=== PATIENT | female | born 1955 | race Caucasian/White ===

== ENCOUNTER 2024-01-16 14:46 | Outpatient (AMB) | payer MEDICARE, SELFPAY ==
--- NOTE | 2024-01-16 14:47 | MHC.PC.OV ---
Vital Signs 01/16/24 15:01 Height 5 ft 5 in Weight 313 lb 8 oz BMI 52.2 BP 110/84 Blood Pressure Location Rt brachial Position Sitting Respiration 16 Pulse 74 Pulse Source Pulse Oximeter Temp 98.7 F Temp Source Oral Pulse Oximetry (%) 94 Oxygen Delivery Method Room Air Intake Visit Reasons: est care Intake Note: New patient visit Resolution Specialist Required: No Allergies codeine Allergy (Unknown, Verified 01/16/24 14:56) unable to breath bee stings Allergy (Unknown, Uncoded 01/16/24 14:56) passed out Tobacco use date assessed: 01/16/24 Fall risk assessment: No Falls in past year Last assessed Fall Risk: 01/16/24 Dental Screening Dental Screen Date: 01/16/24 Did you have a dental visit in the last 12 months?: Yes Did you have a dental problem in the last 6 months where you did not have access to dental care?: No Was dental information given to patient?: Yes HPI HPI Comments History of Present Illness Details History of 67 year old female with a past medical history of chronic pain-OA, failed back, GERD, hypertension, recurrent sinus infection, history of chest pain presenting for follow upshortness of breath, f/up GI symptoms CV: Over the past year has had increasing exertional dyspnea. has more recently had exertional chest tightness. She had PFTs, CT last year. In 2020 had more subtle symptoms. stress testing at that time was unremarkable. She has been having intermittent lower extremity swelling and notes blood pressure is sometimes higher than previously OA: [place]arth[place]. Status post right knee replacement. Multiple prior orthopedic surgeries in the past PFSH Medical History Right wrist fracture Left wrist fracture Radicular pain of lumbosacral region Peripheral neuropathy Myofascial pain Muscle spasm Lumbar radicular pain Lumbar spinal stenosis Lumbar facet joint pain Right knee pain Heart murmur Left foot pain Failed back syndrome Diverticulitis Alcohol drinking problem Surgical History (Updated 01/16/24 @ 15:22 by Viri Sharma CMA) History of spinal fusion H/O: hysterectomy H/O hysterectomy for benign disease Status post right knee surgery Status post lumbar surgery Status post lumbar spinal fusion Family History (Updated 01/16/24 @ 15:24 by Viri Sharma CMA) Mother Ovarian cancer Other Clotting disorder Social History (Updated 01/16/24 @ 15:25 by Viri Sharma CMA) Housing: Condominium Patient Tobacco Use Status: Former Tobacco user Cigarette Packs Per Day: 1 Years Smoked: 15, quit 30 years ago e-Cigarette/Vaping Use: Never Used Second Hand Smoke Exposure: Yes (past ) service: Yes Current occupational status: retired Cognitive needs: No Hearing needs: No Vision needs: Yes (reading glasses) Questionnaire PHQ-9 Over the last 2 weeks, how often have you been bothered by any of the following problems? 1. Little interest or pleasure in doing things: more than half the days 2. Feeling down, depressed, or hopeless: not at all 3. Trouble falling or staying asleep, or sleeping too much: nearly every day 4. Feeling tired or having little energy: more than half the days 5. Poor appetite or overeating: nearly every day 6. Feeling bad about yourself - or that you are a failure or have let yourself or your family down: not at all 7. Trouble concentrating on things, such as reading the newspaper or watching television: not at all 8. Moving or speaking so slowly that other people could have noticed. Or the opposite - being so fidgety or restless that you have been moving around a lot more than usual: not at all 9. Thoughts that you would be better off or of hurting yourself in some way: not at all Total score: 10 Depression Screening Interpretation: Positive Depression Screening Done: Yes 24420 - PHQ-9 Billing: Yes Source: Developed by Drs. Mohit Lindsay, Torri Zavala, Enrico Dunbar and colleagues, with an educational pranav from [employer]. Thrive Questionnaire Date Thrive assessed: 01/16/24 I am a: Patient What is your living situation today?: I have a steady place to live Within the past 12 months, did the food you bought not last and you didn't have the money to get more?: Never true Within the past 12 months, did you worry whether your food would run out before you got money to buy more?: Never true Do you have trouble paying for medicines?: No Do you have trouble getting transportation to medical appointments?: No Do you have trouble paying your heating and electricity bill?: No Do you have trouble taking care of your child, family member or friend?: No Do you have trouble with day-to-day activities such as bathing, preparing meals, shopping, managing finances, etc.?: No Are you currently unemployed and looking for a job?: No Are you interested in more education?: No Please select the resources that you would like help with: None Currently or been in a relationship where the following occur: no concerns reported THRIVE Score: 0 AUDIT C Alcohol Use Questionnaire (AUDIT-C) 1. How often do you have a drink containing alcohol?: Never 3. How often do you have six or more drinks on one occasion?: Never Total Score: 0 JERMAINE-7 AMB Questionnaire JERMAINE-7 Date JERMAINE - 7 assessed: 01/16/24 Feeling nervous, anxious, or on edge: 1 = Several days Not being able to stop or control worryin = Several days Worrying too much about different things: 0 = Not at all Trouble relaxin = Several days Being so restless that it is hard to sit still: 1 = Several days Becoming easily annoyed or irritable: 2 = More than half the days Feeling afraid as if something awful might happen: 0 = Not at all Total JERMAINE-7 score (0-4 normal; 5-9 mild; 10-14 moderate; 15-21 severe): 6 Source: Developed by Drs. Mohit Lindsay, Torri Zavala, Enrico Dunbar and colleagues, with an educational pranav from [employer]. JERMAINE-7 Assessment Billing JERMAINE-7 Assessment Tool: JERMAINE-7 Assessment 46793 Review of Systems Const Details: ROS CONSTITUTIONAL: Denies weight loss, fever and chills. HEENT: Denies changes in vision and hearing. RESPIRATORY: see HPI CV: see HPI GI: Denies abdominal pain, nausea, vomiting and diarrhea. : Denies dysuria and urinary frequency. MSK: Denies new myalgia and joint pain. SKIN: Denies rash and pruritus. NEUROLOGICAL: Denies headache PSYCHIATRIC: Denies recent changes in mood. Physical exam (Primary Care) Vital Signs: Last Vital Signs Temp 98.7 F 01/16/24 15:01 Pulse 74 01/16/24 15:01 Resp 16 01/16/24 15:01 BP 110/84 01/16/24 15:01 Pulse Ox 94 01/16/24 15:01 Oxygen Delivery Method Room Air 01/16/24 15:01 PHYSICAL EXAM: GENERAL: Alert and oriented x 3. NAD EYES: EOMI. Anicteric. HENT: Moist mucous membranes. No scleral icterus. No cervical lymphadenopathy. LUNGS: Clear to auscultation bilaterally. CARDIOVASCULAR: Regular rate and rhythm. No murmur. No JVD. ABDOMEN: Soft, non-tender +bs EXTREMITIES: No edema. Non-tender. SKIN: No rashes or lesions. Warm. NEUROLOGIC: No focal neurological deficits. CN II-XII grossly intact PSYCHIATRIC: Cooperative. Appropriate mood and affect BMI result Body Mass Index 52.2 Tobacco/Smoking Status: Tobacco use Status Tobacco use date assessed 01/16/24 01/16/24 15:07 Patient Tobacco Use Status Former Tobacco user 01/16/24 15:25 e-Cigarette/Vaping Use Never Used 01/16/24 15:25 PHQ-9: PHQ-9 Score PHQ-9: Total score 10 01/16/24 15:15 Depression Screening Interpretation: Positive Thrive Assessment: Date of Thrive Assessment Date Thrive assessed 01/16/24 01/16/24 15:15 Currently or been in a relationship where the following occur: no concerns reported Assessment and Plan Assessment & Plan (1) Exertional dyspnea: Comment: stress testing ordered Code(s): R06.09 - Other forms of dyspnea (2) Leg swelling: Comment: Start lasix/ 09/13 amlodipine Code(s): M79.89 - Other specified soft tissue disorders Orders: Orders CA echo transthoracic complete 01/16/24 R06.09 - Other forms of dyspnea CT angio chest PE protocol 01/16/24 M79.89 - Other specified soft tissue disorders, R06.02 - Shortness of breath, R06.09 - Other forms of dyspnea NM cardiolite stress test 01/16/24 R06.09 - Other forms of dyspnea Medications: New furosemide (Lasix) Take one tab oral once daily. Take an additional 1 tab as needed for leg swelling orally daily; 120 tabs 3RF Coding Level of Care Code Tele Est Pt Level 5 (06543) Complex EM visit Add On G2211 Diagnoses Exertional dyspnea R06.09 Leg swelling M79.89 Additional Codes JERMAINE-7 Assessment Billing - JERMAINE-7 Assessment Tool: JERMAINE-7 Assessment 22625 ([id number])
[2024-01-16 15:01] VITALS: BP 110/84; PULSE 74; RESP 16; TEMP 37.1; O2SAT 94; BMI 52.2
== END 2024-01-16 15:51 | disposition home or self-care (01) ==
PROVIDERS: Visit Provider Internal Medicine
DX: R06.09 Other forms of dyspnea (principal); M79.89 Other specified soft tissue disorders
CPT/HCPCS: 99214; G2211

== ENCOUNTER 2024-05-04 10:05 | Outpatient (AMB) | payer MEDICARE, SELFPAY ==
--- NOTE | 2024-05-04 10:10 | MHC.PC.OV ---
Vital Signs 05/04/24 10:11 Height 5 ft 5 in Weight 313 lb BMI 52.1 BP 132/64 Blood Pressure Location Rt brachial Position Sitting Respiration 12 Pulse 86 Pulse Source Pulse Oximeter Pulse Oximetry (%) 99 Oxygen Delivery Method Room Air Intake Visit Reasons: f/up shortness of breath Intake Note: Patient is following up for shortness of breath. Physician Relations Specialist Required: No Accompanied by: Self / Same As Patient Allergies codeine Allergy (Unknown, Verified 05/04/24 10:16) unable to breath bee stings Allergy (Unknown, Uncoded 05/04/24 10:16) passed out Tobacco use date assessed: 01/16/24 Fall risk assessment: No Falls in past year Last assessed Fall Risk: 05/04/24 Dental Screening Dental Screen Date: 01/16/24 HPI HPI Comments History of Present Illness Details History of 67 year old female with a past medical history of chronic pain-OA, failed back, GERD, hypertension, recurrent sinus infection, history of chest pain presenting for follow up shortness of breath, f/up GI symptoms CV: Over the past year has had increasing exertional dyspnea. has more recently had exertional chest tightness. She had PFTs, CT last year. In 2020 had more subtle symptoms. stress testing at that time was unremarkable -Echocardiogram unremarkable -Nuclear stress test with ?reversible defect -CT angiogram scheduled for June -Currently on [facility] monitor for another week -CTA insignificant-nodule -seeing pulmonary May 09 OA: [place]. Status post right knee replacement. Multiple prior orthopedic surgeries in the past ROS CONSTITUTIONAL: Denies weight loss, fever and chills. HEENT: Denies changes in vision and hearing. RESPIRATORY: Denies SOB and cough. CV: Denies palpitations and CP GI: Denies abdominal pain, nausea, vomiting and diarrhea. : Denies dysuria and urinary frequency. MSK: Denies new myalgia and joint pain. SKIN: Denies rash and pruritus. NEUROLOGICAL: Denies headache PSYCHIATRIC: Denies recent changes in mood. PHYSICAL EXAM: GENERAL: Alert and oriented x 3. NAD EYES: EOMI. Anicteric. HENT: Moist mucous membranes. No scleral icterus. No cervical lymphadenopathy. LUNGS: Clear to auscultation bilaterally. CARDIOVASCULAR: Regular rate and rhythm. No murmur. No JVD. ABDOMEN: Soft, non-tender +bs EXTREMITIES: No edema. Non-tender. SKIN: No rashes or lesions. Warm. NEUROLOGIC: No focal neurological deficits. CN II-XII grossly intact PSYCHIATRIC: Cooperative. Appropriate mood and affect [facility] Medical History Right wrist fracture Left wrist fracture Radicular pain of lumbosacral region Peripheral neuropathy Myofascial pain Muscle spasm Lumbar radicular pain Lumbar spinal stenosis Lumbar facet joint pain Right knee pain Heart murmur Left foot pain Failed back syndrome Diverticulitis Alcohol drinking problem Surgical History (Updated 01/16/24 @ 15:22 by Viri Sharma CMA) History of spinal fusion H/O: hysterectomy H/O hysterectomy for benign disease Status post right knee surgery Status post lumbar surgery Status post lumbar spinal fusion Family History (Updated 01/16/24 @ 15:24 by Viri Sharma CMA) Mother Ovarian cancer Other Clotting disorder Social History (Updated 01/16/24 @ 15:25 by Viri Sharma CMA) Housing: [facility] Patient Tobacco Use Status: Former Tobacco user Cigarette Packs Per Day: 1 Years Smoked: 15, quit 30 years ago e-Cigarette/Vaping Use: Never Used Second Hand Smoke Exposure: Yes (past ) service: Yes Current occupational status: retired Cognitive needs: No Hearing needs: No Vision needs: Yes (reading glasses) Questionnaire Thrive Questionnaire Date Thrive assessed: 01/16/24 JERMAINE-7 AMB Questionnaire JERMAINE-7 Date JERMAINE - 7 assessed: 01/16/24 Source: Developed by Drs. Mohit Lindsay, Torri Zavala, Enrico Dunbar and colleagues, with an educational pranav from [employer]. Physical exam (Primary Care) Vital Signs: Last Vital Signs Pulse 86 05/04/24 10:11 Resp 12 05/04/24 10:11 BP 132/64 05/04/24 10:11 Pulse Ox 99 05/04/24 10:11 Oxygen Delivery Method Room Air 05/04/24 10:11 BMI result Body Mass Index 52.1 Tobacco/Smoking Status: Tobacco use Status Tobacco use date assessed 01/16/24 05/04/24 10:18 Patient Tobacco Use Status Former Tobacco user 05/04/24 10:18 e-Cigarette/Vaping Use Never Used 05/04/24 10:18 Thrive Assessment: Date of Thrive Assessment Date Thrive assessed 05/06/24 08/23/24 10:18 Assessment and Plan Assessment & Plan (1) Myofascial pain: Code(s): M79.18 - Myalgia, other site Plan: stable (2) Abnormal stress test: Code(s): R94.39 - Abnormal result of other cardiovascular function study Plan: Has CT angiogram upcoming Continue current medications ER if chest pain, shortness of breath Medications: New nortriptyline 25 mg PO DAILY 90 caps 3RF Coding Level of Care Code Est Pt Level 5 (09325) Diagnoses Myofascial pain M79.18 Abnormal stress test R94.39 Time Spent (min) 47
[2024-05-04 10:11] VITALS: BP 132/64; PULSE 86; RESP 12; O2SAT 99; BMI 52.1
== END 2024-05-04 10:56 | disposition home or self-care (01) ==
PROVIDERS: Visit Provider Internal Medicine
DX: M79.18 Myalgia, other site (principal); R94.39 Abnormal result of other cardiovascular function study
CPT/HCPCS: 99215

== ENCOUNTER 2024-08-14 13:16 | Outpatient (AMB) | payer MEDICARE, SELFPAY ==
--- NOTE | 2024-08-14 13:53 | MHC.PC.OV ---
Vital Signs 08/14/24 13:57 Height 5 ft 5 in Weight 314 lb BMI 52.2 BP 134/88 Blood Pressure Location Lt brachial Position Sitting Pulse 85 Pulse Source Pulse Oximeter Pulse Oximetry (%) 98 Oxygen Delivery Method Room Air Intake Visit Reasons: new medication update Intake Note: Medication follow up. Is supposed to start Atorvatatin 50 and Metoprolol 25 but wants to talk to pcp first. Dr Menon at cardiology recommended. Lumber Press Operator Required: No Allergies codeine Allergy (Unknown, Verified 08/14/24 13:55) unable to breath bee stings Allergy (Unknown, Uncoded 08/14/24 13:55) passed out Tobacco use date assessed: 01/16/24 Dental Screening Dental Screen Date: 01/16/24 HPI HPI Comments History of Present Illness Details History of 67 year old female with a past medical history of chronic pain-OA, failed back, GERD, hypertension, recurrent sinus infection, history of chest pain presenting for follow up shortness of breath, f/up GI symptoms CV: Over the past year has had increasing exertional dyspnea. has more recently had exertional chest tightness. She had PFTs, CT last year. In 2020 had more subtle symptoms. stress testing at that time was unremarkable. Following with Dr Nix/[place] -Echocardiogram unremarkable -Nuclear stress test with ?reversible defect -cardiac CT performed with at the most mild/mod atherosclerosis - [facility] monitor was told no worrisome arrythmias. Symptoms due consistently coincide with her watch reading afib -CTA insignificant-nodule -seeing pulmonary OA: [place]. Status post right knee replacement. Multiple prior orthopedic surgeries in the past ROS see HPI PHYSICAL EXAM: GENERAL: Alert and oriented x 3. NAD EYES: EOMI. Anicteric. HENT: Moist mucous membranes. No scleral icterus. No cervical lymphadenopathy. LUNGS: Clear to auscultation bilaterally. CARDIOVASCULAR: Regular rate and rhythm. No murmur. No JVD. ABDOMEN: Soft, non-tender +bs EXTREMITIES: No edema. Non-tender. SKIN: No rashes or lesions. Warm. NEUROLOGIC: No focal neurological deficits. CN II-XII grossly intact PSYCHIATRIC: Cooperative. Appropriate mood and affect PFSH Medical History Right wrist fracture Left wrist fracture Radicular pain of lumbosacral region Peripheral neuropathy Myofascial pain Muscle spasm Lumbar radicular pain Lumbar spinal stenosis Lumbar facet joint pain Right knee pain Heart murmur Left foot pain Failed back syndrome Diverticulitis Alcohol drinking problem Surgical History (Updated 01/16/24 @ 15:22 by Viri Sharma CMA) History of spinal fusion H/O: hysterectomy H/O hysterectomy for benign disease Status post right knee surgery Status post lumbar surgery Status post lumbar spinal fusion Family History (Updated 01/16/24 @ 15:24 by Viri Sharma CMA) Mother Ovarian cancer Other Clotting disorder Social History (Updated 01/16/24 @ 15:25 by Viri Sharma CMA) Housing: Condominium Patient Tobacco Use Status: Former Tobacco user Cigarette Packs Per Day: 1 Years Smoked: 15, quit 30 years ago Packs Per Year: 0 e-Cigarette/Vaping Use: Never Used Second Hand Smoke Exposure: Yes (past ) service: Yes Current occupational status: retired Cognitive needs: No Hearing needs: No Vision needs: Yes (reading glasses) Questionnaire Thrive Questionnaire Date Thrive assessed: 01/16/24 JERMAINE-7 AMB Questionnaire JERMAINE-7 Date JERMAINE - 7 assessed: 01/16/24 Source: Developed by Drs. Mohit Lindsay, Torri Zavala, Enrico Dunbar and colleagues, with an educational pranav from [employer]. Physical exam (Primary Care) Vital Signs: Last Vital Signs Pulse 85 08/14/24 13:57 BP 134/88 08/14/24 13:57 Pulse Ox 98 08/14/24 13:57 Oxygen Delivery Method Room Air 08/14/24 13:57 BMI result Body Mass Index 52.2 Tobacco/Smoking Status: Tobacco use Status Tobacco use date assessed 01/16/24 08/14/24 13:54 Patient Tobacco Use Status Former Tobacco user 08/14/24 13:54 e-Cigarette/Vaping Use Never Used 08/14/24 13:54 Thrive Assessment: Date of Thrive Assessment Date Thrive assessed 01/16/24 08/14/24 13:54 Coding Level of Care Code Est Pt Level 4 (32531) Diagnoses Coronary artery disease involving [place] coronary artery of [place] heart, unspecified whether angina present I25.10 Coronary Disease-Associated Artery/Lesion type: [place] artery [place] vs. transplanted heart: [place] heart Associated angina: unspecified whether angina present Class 3 severe obesity with serious comorbidity and body mass index (BMI) of 50.0 to 59.9 in adult, unspecified obesity type E66.813; E66.01; Z68.43 Obesity type: unspecified obesity type Serious obesity comorbidity presence: with serious comorbidity Body mass index: BMI 50.0-59.9 Obesity classification: adult class 3 (BMI >= 40) Assessment & Plan Assessment & Plan (1) CAD (coronary artery disease): Code(s): I25.10 - Atherosclerotic heart disease of [place] coronary artery without angina pectoris Category: Medical Qualifiers: Coronary Disease-Associated Artery/Lesion type: [place] artery [place] vs. transplanted heart: [place] heart Associated angina: unspecified whether angina present Qualified Code(s): I25.10 - Atherosclerotic heart disease of [place] coronary artery without angina pectoris Plan: Recommended starting the medications prescribed by cardiology-statin therapy (2) Obesity: Code(s): E66.9 - Obesity, unspecified Category: Medical Qualifiers: Obesity type: unspecified obesity type Serious obesity comorbidity presence: with serious comorbidity Body mass index: BMI 50.0-59.9 Obesity classification: adult class 3 (BMI >= 40) Qualified Code(s): E66.813 - Obesity, class 3; E66.01 - Morbid (severe) obesity due to excess calories; Z68.43 - Body mass index [BMI] 50.0-59.9, adult Plan: Continue to try to get GLP approved. Recommended by cardiology as well Medications: New semaglutide (weight loss) (Wegovy) administer weeks 1 through 4 of therapy 0.25 mg (0.5 mL) subcut QWEEK 2 mL 0RF E66.9 - Obesity, unspecified, I10 - Essential (primary) hypertension, I25.10 - Atherosclerotic heart disease of [place] coronary artery without angina pectoris Zepbound (tirzepatide (weight loss)) for 4 weeks 2.5 mg (0.5 mL) subcut QWEEK 2 mL 0RF NS E66.9 - Obesity, unspecified, I25.10 - Atherosclerotic heart disease of [place] coronary artery without angina pectoris, R94.39 - Abnormal result of other cardiovascular function study Discontinued Mounjaro for 4 weeks Discontinued Reason: Doctor's Order 2.5 mg (0.5 mL) subcut QWEEK 2 mL 3RF NS E66.9 - Obesity, unspecified, R94.39 - Abnormal result of other cardiovascular function study
[2024-08-14 13:57] VITALS: BP 134/88; PULSE 85; O2SAT 98; BMI 52.2
== END 2024-08-14 16:05 | disposition home or self-care (01) ==
PROVIDERS: PCP Internal Medicine; Visit Provider Internal Medicine
DX: I25.10 Atherosclerotic heart disease of native coronary artery without angina pectoris (principal); E66.813 Obesity, class 3; E66.01 Morbid (severe) obesity due to excess calories; Z68.43 Body mass index [BMI] 50.0-59.9, adult

== ENCOUNTER → 2024-08-14 13:16 | Outpatient (BNVA) | payer MEDICARE, SELFPAY | PROVIDERS: PCP Internal Medicine; Visit Provider Internal Medicine | DX: I25.10 Atherosclerotic heart disease of native coronary artery without angina pectoris (principal); E66.813 Obesity, class 3; E66.01 Morbid (severe) obesity due to excess calories; Z68.43 Body mass index [BMI] 50.0-59.9, adult; I10 Essential (primary) hypertension; Z96.651 Presence of right artificial knee joint | CPT/HCPCS: 99212 ==

== ENCOUNTER 2024-11-13 13:52 | Outpatient (AMB) | payer MEDICARE, SELFPAY ==
--- NOTE | 2024-11-13 14:02 | A.OFFPC_ITS ---
Vital Signs 11/13/24 14:05 Height 5 ft 5 in Weight 301 lb BMI 50.1 BP 118/68 Blood Pressure Location Rt brachial Position Sitting Respiration 16 Pulse 73 Pulse Source Pulse Oximeter Temp 98.3 F Temp Source Oral Pulse Oximetry (%) 93 Oxygen Delivery Method Room Air Intake Visit Reasons: cpe Intake Note: Headache, congestion, sweats, chills. headaches. Sxs started a couple weeks ago. Follow up on medication. Switcher Required: No Allergies codeine Allergy (Unknown, Verified 11/13/24 14:04) unable to breath bee stings Allergy (Unknown, Uncoded 11/13/24 14:04) passed out Medication List - Last Reconciled 11/19/24 by Julianne Tirado MD amlodipine 10 mg PO DAILY amoxicillin-pot clavulanate 875-125 mg 1 tab PO BID atorvastatin 40 mg PO DAILY fluticasone propionate 50 mcg/actuation 1 spray intranasal BID furosemide (Lasix) Take one tab oral once daily. Take an additional 1 tab as needed for leg swelling orally daily; lamotrigine 200 mg (2 x 100 mg) PO BID metoprolol succinate ER 25 mg PO DAILY naproxen sodium (Aleve) 220 mg PO BID PRN nortriptyline 25 mg PO DAILY nystatin topical DAILY Zepbound (tirzepatide (weight loss)) 2.5 mg (0.5 mL) subcut QWEEK NS Tobacco use date assessed: 11/13/24 Fall risk assessment: 1 Fall in past year Last assessed Fall Risk: 11/13/24 Dental Screening Dental Screen Date: 01/16/24 HPI HPI Comments History of Present Illness Details History of 69 year old female with a past medical history of chronic pain-OA, failed back, GERD, hypertension, recurrent sinus infection, history of chest pain presenting for follow up CV: 2022/2023 with increased exertional dyspnea, chest tightness. She had PFTs, CT last year. In 2020 had more subtle symptoms. stress testing at that time was unremarkable. Following with Dr Nix/[facility] -Echocardiogram unremarkable -Nuclear stress test with ?reversible de fect -cardiac CT performed with at the most mild/mod atherosclerosis - ROSE MARY monitor was told no worrisome arry thmias. Symptoms due consistently coincide with her watch reading afib -CTA insignificant-nodule -seeing pulmonary OA: [place]. Status post right knee replacement. Multiple prior orthopedic surgeries in the past Pending sleep study Currently with increased nasal congestion, sinus pressure, RODRIGUEZ ROS see HPI PHYSICAL EXAM: GENERAL: Alert and oriented x 3. NAD EYES: EOMI. Anicteric. HENT: Moist mucous membranes. No scleral icterus. No cervical lymphadenopathy. LUNGS: Clear to auscultation bilaterally. CARDIOVASCULAR: Regular rate and rhythm. No murmur. No JVD. ABDOMEN: Soft, non-tender +bs EXTREMITIES: No edema. Non-tender. SKIN: No rashes or lesions. Warm. NEUROLOGIC: No focal neurological deficits. CN II-XII grossly intact PSYCHIATRIC: Cooperative. Appropriate mood and affect [facility] Medical History Right wrist fracture Left wrist fracture Radicular pain of lumbosacral region Peripheral neuropathy Myofascial pain Muscle spasm Lumbar radicular pain Lumbar spinal stenosis Lumbar facet joint pain Right knee pain Heart murmur Left foot pain Failed back syndrome Diverticulitis Alcohol drinking problem Surgical History History of spinal fusion H/O: hysterectomy H/O hysterectomy for benign disease Status post right knee surgery Status post lumbar surgery Status post lumbar spinal fusion Family History Mother Ovarian cancer Other Clotting disorder Social History Housing: Condominium Alcohol intake: current Patient Tobacco Use Status: Former Tobacco user Cigarette Packs Per Day: 1 Years Smoked: 15, quit 30 years ago e-Cigarette/Vaping Use: Never Used Second Hand Smoke Exposure: Yes (past ) service: Yes Current occupational status: retired Cognitive needs: No Hearing needs: No Vision needs: Yes (reading glasses) Questionnaire PHQ-9 Over the last 2 weeks, how often have you been bothered by any of the following problems? 1. Little interest or pleasure in doing things: more than half the days 2. Feeling down, depressed, or hopeless: not at all 3. Trouble falling or staying asleep, or sleeping too much: nearly every day 4. Feeling tired or having little energy: nearly every day 5. Poor appetite or overeating: more than half the days 6. Feeling bad about yourself - or that you are a failure or have let yourself or your family down: not at all 7. Trouble concentrating on things, such as reading the newspaper or watching television: more than half the days 8. Moving or speaking so slowly that other people could have noticed. Or the opposite - being so fidgety or restless that you have been moving around a lot more than usual: not at all 9. Thoughts that you would be better off or of hurting yourself in some way: not at all Total score: 12 Depression Screening Interpretation: Positive Depression Screening Follow-up: Existing condition Depression Screening Done: Yes 10527 - PHQ-9 Billing: Yes Source: Developed by Drs. Mohit Lindsay, Torri Zavala, Enrico Dunbar and colleagues, with an educational pranav from [employer]. Thrive Questionnaire Date Thrive assessed: 11/09/24 I am a: Patient What is your living situation today?: I have a steady place to live Within the past 12 months, did the food you bought not last and you didn't have the money to get more?: Never true Within the past 12 months, did you worry whether your food would run out before you got money to buy more?: Never true Do you have trouble paying for medicines?: No Do you have trouble getting transportation to medical appointments?: No Do you have trouble paying your heating and electricity bill?: No Do you have trouble taking care of your child, family member or friend?: No Do you have trouble with day-to-day activities such as bathing, preparing meals, shopping, managing finances, etc.?: No Are you currently unemployed and looking for a job?: No Are you interested in more education?: No Please select the resources that you would like help with: None Currently or been in a relationship where the following occur: No concerns reported THRIVE Score: 0 JERMAINE-7 AMB Questionnaire JERMAINE-7 Date JERMAINE - 7 assessed: 01/16/24 Being so restless that it is hard to sit still: 0 = Not at all Source: Developed by Drs. Mohit Lindsay, Enrico Leggett and colleagues, with an educational pranav from [employer]. Physical exam (Primary Care) Vital Signs: Last Vital Signs Temp 98.3 F 03/04/25 14:05 Pulse 73 11/13/24 14:05 Resp 16 11/13/24 14:05 BP 118/68 11/13/24 14:05 Pulse Ox 93 11/13/24 14:05 Oxygen Delivery Method Room Air 11/13/24 14:05 BMI result Body Mass Index 50.1 Tobacco/Smoking Status: Tobacco use Status Tobacco use date assessed 11/13/24 11/13/24 14:12 Patient Tobacco Use Status Former Tobacco user 11/13/24 14:12 e-Cigarette/Vaping Use Never Used 11/13/24 14:12 PHQ-9: PHQ-9 Score PHQ-9: Total score 12 11/19/24 04:00 Depression Screening Interpretation: Positive Depression Screening Follow-up: Existing condition Thrive Assessment: Date of Thrive Assessment Date Thrive assessed 11/09/24 11/13/24 14:12 Currently or been in a relationship where the following occur: No concerns reported Coding Level of Care Code Est Pt Level 4 (24432) Complex EM visit Add On G2211 Diagnoses Acute recurrent maxillary sinusitis J01.01 Chronicity: acute Recurrence: recurrent Sinusitis location: maxillary Exertional dyspnea R06.09 Additional Codes PHQ-9 - 76788 - PHQ-9 Billing: Yes ([id number]) Assessment & Plan Assessment & Plan (1) Sinusitis: Code(s): J32.9 - Chronic sinusitis, unspecified Category: Medical Qualifiers: Chronicity: acute Recurrence: recurrent Sinusitis location: maxillary Qualified Code(s): J01.01 - Acute recurrent maxillary sinusitis Plan: Augmentin sent (2) Exertional dyspnea: Comment: stable. Extensive work up. Follows cardiology/pulmonary Code(s): R06.09 - Other forms of dyspnea Category: Medical Plan: Continue weight management. Failed diety/exercise. Testing for sleep apnea. Difficulty getting GLP Orders: Orders Comprehensive Met. Panel 11/13/24 I10 - Essential (primary) hypertension, J32.9 - Chronic sinusitis, unspecified, R53.83 - Other fatigue Complete Blood Count Auto Diff 11/13/24 I10 - Essential (primary) hypertension, J32.9 - Chronic sinusitis, unspecified, R53.83 - Other fatigue Lipid Panel 11/13/24 I10 - Essential (primary) hypertension, J32.9 - Chronic s inusitis, unspecified, R53.83 - Other fatigue TSH reflex Free T4 11/13/24 I10 - Essential (primary) hypertension, J32.9 - Chronic sinusitis, unspecified, R53.83 - Other fatigue Vitamin B12 and Folate 11/13/24 I10 - Essential (primary) hypertension, J32.9 - Chronic sinusitis, unspecified, R53.83 - Other fatigue IRON PROFILE 11/13/24 I10 - Essential (primary) hypertension, J32.9 - Chronic sinusitis, unspecified, R53.83 - Other fatigue Medications: New amoxicillin-pot clavulanate 875-125 mg 1 tab PO BID 20 tabs 0RF
[2024-11-13 14:05] VITALS: BP 118/68; PULSE 73; RESP 16; TEMP 36.8; O2SAT 93; BMI 50.1
--- OUTSIDE RECORDS SUMMARY | 2024-11-13 17:30 | XMS_ITS | Clinical Summary ---
Author Organization [facility] Address [address] [place] [address] Care Team Providers Care Maintenance Trainer Name Role Phone Julianne Tirado MD Primary Care Provider [phone] Allergies Active Allergy Reactions Criticality Noted Date Comments Bee Sting Anaphylaxis High 02/09/2022 Anaphylactic Codeine Anaphylaxis High 11/16/2005 Medications Medication Sig Dispensed Refills Start Date End Date Status fluticasone (FLONASE) 50 MCG/ACT nasal spray spray/apply 2 sprays in each nostril daily as needed. 0 Active cholecalciferol (VITAMIN D3) 1000 units tablet Take 1,000 Units by mouth daily. 0 Active vitamin C (VITAMIN C) 1000 MG tablet Take 1 tablet (1,000 mg total) by mouth daily. 30 tablet 0 06/21/2018 Active amLODIPine (NORVASC) tablet 10 mg Take 10 mg by mouth daily. 0 11/21/2021 Active EPINEPHrine (EpiPen 2-Deshawn) 0.3 MG/0.3ML SOAJ EpiPen 2-Deshawn 0.3 mg/0.3 mL injection, auto-injector INJECT 0.3 MG INTRAMUSCULARLY ONCE 0 Active nystatin (MYCOSTATIN) powder daily as needed. 0 01/06/2022 Active nystatin-triamci nolone (MYCOLOG II) cream APPLY TO AFFECTED AREA TWICE A DAY FOR 14 DAYS 0 02/05/2022 Active lamoTRIgine (LaMICtal) 100 MG tablet Take 200 mg by mouth 2 (two) times a day. 0 01/08/2021 Active fexofenadine (Tessie Allergy) 180 MG tablet Take 180 mg by mouth daily as needed. 0 12/23/2020 Active acetaminophen (TYLENOL EXTRA STRENGTH) 500 MG tablet Take 2 tablets (1,000 mg total) by mouth every 8 (eight) hours. 30 tablet 0 03/03/2022 Active senna-docusate (Senna-Plus) 8.6-50 MG Take 1 tablet by mouth 2 (two) times a day. Take while on narcotic to help prevent constipation. 30 tablet 0 03/03/2022 Active methocarbamol (ROBAXIN) 750 MG tablet Take one tab po every 6hrs prn spasm. 60 tablet 0 03/03/2022 Active aspirin EC 81 MG tablet Take 1 tablet (81 mg total) by mouth 2 (two) times a day. 84 tablet 0 03/03/2022 Active HYDROmorphone (DILAUDID) 2 MG tablet Take 1-2 tablets (2-4 mg total) by mouth every 4 (four) hours as needed. 42 tablet 0 03/03/2022 Active omeprazole (PriLOSEC) 20 MG capsule Take 1 capsule (20 mg total) by mouth daily. 30 capsule 0 03/03/2022 Active meloxicam (MOBIC) 15 MG tablet Take 1 tablet (15 mg total) by mouth daily. 30 tablet 0 03/03/2022 Active Active Problems Problem Noted Date Diagnosed Date Degenerative arthritis of left knee 06/20/2018 Immunizations Name Administration Dates Next Due Covid-19 ([employer]) Dilution Required 09/01/2021 Social History Tobacco Use Types Packs/Day Years Used Date Smoking Tobacco: Former Cigarettes 2 15 1 972 - 07/29/1988 Smokeless Tobacco: Never Alcohol Use Standard Drinks/Week Comments Yes 0 (1 standard drink = 0.6 oz pur e alcohol) socially Sex and Gender Information Value Date Recorded Sex Assigned at Female 02/03/2022 7:14 AM EDT Gender Identity Female 02/09/2022 4:40 PM EDT Sexual Orientation Not on file Job Start Date Occupation Industry Not on file Not on file Not on file Last Filed Vital Signs Vital Sign Reading Time Taken Comments Blood Pressure 128/81 03/03/2022 7:39 AM EDT Pulse 65 03/03/2022 7:39 AM EDT Temperature 36.9 ??C (98.5 ??F) 03/03/2022 7:39 AM ED T Respiratory Rate 16 03/03/2022 7:39 AM EDT Oxygen Saturation 96% 03/03/2022 7:39 AM EDT Inhaled Oxygen Concentration - - Weight 122.5 kg (270 lb 1 oz) 03/02/2022 11:17 A M EDT Height 165.1 cm (5' 5 ) 03/02/2022 11:17 AM EDT Body Mass Index 44.94 03/02/2022 11:17 AM EDT Plan of Treatment Health Maintenance Due Date Last Done Comments Hepatitis C Screening 1957 Depression Screening 1969 BMI Counseling 1975 Preventative Health Evaluation 1975 Colon Cancer Screening (Colonoscopy) 2002 Breast Cancer Screening (Mammogram) 2007 Shingrix-Zoster Vaccine (2 o f 2) 11/28/2020 10/03/2020 Fall Risk Assessment 2022 Osteoporosis Screening (DEXA Scan) 2022 Pneumococcal Vaccine (1 of 1 - PCV) 2022 COVID-19 Vaccine (4 - 2023-2 5 season) 2024 09/01/2021, 11/20/2020, 10/30/2020 Influenza Vaccine (#1) 2024 09/21/2021 DTap / Tdap / Td (3 - Td or Tdap) 04/28/2028 04/28/2018, 01/13/2012, 09/26/2003 RSV Adult > 60+ Yrs or (1 - 1-dose 75+ series) 2032 Hepatitis B Vaccines Aged Out No long er eligible based on patient's age to complete this topic RSV Ped < 20 months Aged Out No longe r eligible based on patient's age to complete this topic Medical Devices Implanted Type Area Diesel Inspector Device Identifier Shelf Expiration Date Model / Serial / Lot Cement Palacos R Bone 40gm - [id number] - [id number] Implanted:Qty: 1 on 06/20/2018 by Mohit Vega MD at [facility] Left: Knee [employer] 12/10/2021 [id number] / / [id number] Stem Diana Ii Long 100mm 14mm Titanium Tibial Knee - [id number] - [id number] Implanted:Qty: 1 on 06/20/2018 by Mohit Vega MD at [facility] Left: Knee [employer] 04/29/2028 [id number] / / [id number] Baseplate Diana Ii 5 Base Nonporous Metal Tibial Right - [id number] - [id number] Implanted:Qty: 1 on 06/20/2018 by Mohit Vega MD at [facility] Left: Knee [employer] 03/06/2028 [id number] / / [id number] Patella Diana Ii 7.5mm Resur 35mm - [id number] - [id number] Implanted:Qty: 1 on 06/20/2018 by Mohit Vega MD at [facility] Left: Knee [employer] 01/08/2028 [id number] / / [id number] Baseplate Diana Ii 5 Cemented Titanium Nonporous Tibial - [id number] - [id number] Implanted:Qty: 1 on 06/20/2018 by Mohit Vega MD at [facility] Left: Knee [employer] 02/20/2028 [id number] / / [id number] Component Legion Diana Ii 5 Posterior Stabilized Oxinium - [id number] - [id number] Implanted:Qty: 1 on 06/20/2018 by Mohit Vega MD at [facility] Left: Knee [employer] 03/11/2028 [id number] / / [id number] Insert Diana Ii 5-6 11mm Constrained Uhmwpe Artic Knee - [id number] - [id number] Implanted:Qty: 1 on 06/20/2018 by Mohit Vega MD at [facility] Left: Knee [employer] 03/06/2028 [id number] / / [id number] Knee Tib Insrt Ps X3 5x11mm Stry-Howm 3027-[id number]-[id number] 67 - [id number] Implanted:Qty: 1 on 03/02/2022 by Mohit Vega MD at [facility] Right: Knee [employer] [id number] 09/29/2026 [id number] / / [id number] Knee Fem Bsplt W Pa Stry-Howm 5645-I-[id number] 52 - [id number] Implanted:Qty: 1 on 03/02/2022 by Mohit Vega MD at [facility] Right: Knee [employer] [id number] 12/30/2026 [id number] / / [id number] Knee Pat Trthln Mtl Bck 36x10 Stry-Howm 7998-Y-[id number] 16 - [id number] Implanted:Qty: 1 on 03/02/2022 by Mohit Vega MD at [facility] Right: Knee [employer] [id number] 11/29/2026 [id number]-L-360 / / [id number] Knee Bsplt Triathlon Ti Sz 5 Stry-Howm 7499-Q-[id number] 15 - [id number] Implanted:Qty: 1 on 03/02/2022 by Mohit Vega MD at [facility] Right: Knee [employer] [id number] 12/30/2026 5536-B-[id number] / / [id number] Advance Directives For more information, please contact: [phone] Latest Code Status on File Code Status Date Activated Date Inactivated Comments Full Code 03/02/2022 12:16 PM 03/03/2022 9:05 PM This code status was ascertained in the following way: per chart / unit policy . Code Status History Code Status Date Activated Date Inactivated Comments Full Code 03/02/2022 10:00 AM 03/02/2022 12:16 PM Full Code 06/20/2018 7:28 AM 06/21/2018 10:34 PM Thi s code status was ascertained in the following way: discussion with healthcare malt liqu[employer] sales representative . Full Code 06/20/2018 5:15 AM 06/20/2018 7:28 AM Care Teams Maintenance Trainer Relationship Specialty Start Date End Date Julianne Tirado MD PCP - General Internal Medicine 06/14/18
--- OUTSIDE RECORDS SUMMARY | 2024-11-13 17:30 | XMS_ITS | Clinical Summary ---
Author Organization [facility] it Address [address] [place] [address] Care Team Providers Care Bean Roaster Name Role Phone Julianne Tirado MD Primary Care Provider [phone] Immunizations Name Administration Dates Next Due Pfizer SARS-CoV-2 COVID-19, mRNA, LNP-S, preservative free 11/20/2020,10/30/2020 Surgical History Surgery Date Site/Laterality Comments TONSILLECTOMY ADENOIDECTOMY, BILATERAL MYRINGOTOMY AND TUBES 5 yrs PROCEDURE: DC TONSILLECTOMY & ADENOIDECTOMY <AGE 14 OTHER SURGICAL HISTORY 2003 PROCEDURE: DC ARTHRODESIS ANTERIOR SPINAL DFRM 2-3 VRT SGM; COMMENT: lumbar spine CYST REMOVAL 06/14 PROCEDURE: DC EXCISION PILONIDAL CYST/SINUS SIMPLE KNEE ARTHROSCOPY W/ MENISCAL REPAIR latest 15 yrs ago PROCEDURE: DC ARTHROSCOPY KNEE W/MENISCUS RPR MEDIAL/LATERAL; COMMENT: x's 3 OTHER SURGICAL HISTORY PROCEDURE: DC OPEN TX CARPAL BONE FRACTURE OTH/THN SCAPHOID EA WISDOM TOOTH EXTRACTION PROCEDURE: HISTORICAL WISDOM TEETH EXTRACTION COLONOSCOPY 11/18/10 PROCEDURE: HISTORICAL COLONOSCOPY; COMMENT: Scattered sigmoid diverticulosis, due in 10 yrs HYSTERECTOMY 2010 PROCEDURE: HISTORICAL TOTAL HYSTERECTOMY WITH BSO TONSILLECTOMY PROCEDURE:TONSILLECTOMY FRACTURE SURGERY Left PROCEDURE:FRACTURE SURGERY;COMMENT:ARM FRACTURE SURGERY Right PROCEDURE:FRACTURE SURGERY;COMMENT:ARM COLONOSCOPY PROCEDURE:COLONOSCOPY DENTAL SURGERY PROCEDURE:DENTAL SURGERY PILONIDAL CYST DRAINAGE PROCEDURE:PILONIDAL CYST DRAINAGE HYSTERECTOMY PROCEDURE:HYSTERECTOMY;CO MMENT:laparoscopic hysterectomy BSO for fibroids TOTAL KNEE ARTHROPLASTY 06/20/2018 Left PROCEDURE:TOTAL KNEE ARTHROPLASTY;COMMENT:Proc edure: REPLACEMENT TOTAL KNEE; Surgeon: Moiht Vega MD; Location: [facility] ([facility]); Service: Orthopedics; Laterality: Left; HAND SURGERY 2019 Bilateral PROCEDURE:HAND SURGERY;COMMENT:wrist surgery KNEE SURGERY Right PROCEDURE:KNEE SURGERY;COMMENT:X2 arthroscopy KNEE SURGERY Left PROCEDURE:KNEE SURGERY;COMMENT:X1 CATARACT EXTRACTION W/ INTRAOCULAR LENS IMPLANT Bilateral PROCEDURE:CATARACT EXTRACTION W/ INTRAOCULAR LENS IMPLANT BACK SURGERY 2003 PROCEDURE:BACK SURGERY;COMMENT:SPINAL FUSION L3-4, BACK SURGERY 2006 PROCEDURE:BACK SURGERY;COMMENT:discectom y L1-2s Medical History Medical History Date Comments Allergic rhinitis, cause unspecified DX:Allergic rhinitis, cause unspecified Obesity, unspecified DX:Obesity, unspecified Pure hypercholesterolemia DX:Pur e hypercholesterolemia Backache, unspecified DX:Backach e, unspecified; COMMENT: radiculopathy Leiomyoma of uterus, unspecified 10/21/2006 DX:Leiomyoma of uterus, unspecified History of bee sting allergy 04/05/2016 DX: History of bee sting allergy Hyperlipidemia 01/28/2006 DX:Hyperlipidemi a Family history of cardiovasc ular disease DX:Family history of cardiov ascular disease Essential hypertension DX:Essent ial hypertension Osteoarthritis DX:Osteoarthriti s GERD (gastroesophageal reflux disease) DX:GERD (gastroesophageal reflux disease) PONV (postoperative nausea a nd vomiting) DX:PONV (postoperative nause a and vomiting) Acute sinus infection DX:Acute s inus infection PUD (peptic ulcer disease) DX:PU D (peptic ulcer disease) Peripheral neuropathy DX:Periphe ral neuropathy;COMMENT:LEFT FOOT D/T SPINAL STENOSIS Family history of deep vein thrombosis DX:Family history of deep vein thrombosis;COMMENT:FATHER DVT TO PE S/P FX-ANTI COAG [place] History of staph infection 2001 DX:Hi story of staph infection;COMMENT:POST OP SPINAL DONNIE-ABX [place] Morbid obesity with BMI of 4 0.0-44.9, adult ([facility]/HCC) DX:Morbid obesity with BMI o f 40.0-44.9, adult ([facility]) Hyperlipidemia DX:Hyperlipidemi a Failed back syndrome DX:Failed b ack syndrome;COMMENT:lumbrosacral Lumbar radicular pain DX:Lumbar radicular pain Diverticulosis DX:Diverticulosi s Spinal stenosis DX:Spinal stenos is Dyspnea on exertion DX:Dyspnea o n exertion Bronchitis, chronic (CMS/HCC) DX :Bronchitis, chronic (HCC) Chest pain DX:Chest pain;CO MMENT:pt reports negative w/u Hypertension DX:Hypertension Arrhythmia DX:Arrhythmia;CO MMENT:PVC Peptic ulcer DX:Peptic ulcer Family history of pulmonary embolism DX:Family history of pulmonary embolism Family History Medical History Relation Name Comments Other: emphysema Father Other cancer Mother ovarian Relation Name Status Comments Brother 1 Alive Brother 2 Alive Father (Age 84) CHF,COPD Maternal Grandfather Maternal Grandmother Mother (Age 68 yrs) Paternal Grandfather Paternal Grandmother Social History Tobacco Use Types Packs/Day Years Used Date Smoking Tobacco: Former Cigarettes 2 16.9 0 09/12/1971 - 11/10/1986 Smokeless Tobacco: Never Alcohol Use Standard Drinks/Week Comments Yes 0 (1 standard drink = 0.6 oz pur e alcohol) Comments Unknown Sex and Gender Information Value Date Recorded Sex Assigned at Not on file Legal Sex Female 1:16 AM EST Gender Identity Not on file Sexual Orientation Not on file Obstetrics History Last Filed Vital Signs Vital Sign Reading Time Taken Comments Blood Pressure - - Pulse - - Temperature - - Respiratory Rate - - Oxygen Saturation - - Inhaled Oxygen Concentration - - Weight 139 kg (306 lb) 01/04/2023 10:22 AM EDT Height 162.6 cm (5' 4 ) 01/04/2023 10:22 AM EDT Body Mass Index 52.52 01/04/2023 10:22 AM EDT Plan of Treatment Health Maintenance Due Date Last Done Comments Breast Cancer Screening 1957 Pneumococcal Vaccine: 50+ Years (1 of 1 - PCV) 2007 RSV Immunization Patients 60 + Years Old (1 - Risk 60-74 years 1-dose series) 2017 Zoster Vaccines (2 of 2) 11/28/2020 10/03/2020 Cholesterol Screening (Lipid Panel) 08/15/2022 Colorectal Cancer Screening: Colonoscopy 08/15/2022 Depression Screening 08/15/2022 Hepatitis C Screening 08/15/2022 Osteoporosis Screening (Bone Density Screening) 08/15/2022 Social Influencers of Health Screening 08/15/2022 Falls Risk Assessment 2022 COVID-19 Vaccine (4 - 2023-2 5 season) 2024 09/01/2021, 11/20/2020, 10/30/2020 Influenza Vaccine (#1) 2024 DTaP,Tdap,and Td Vaccines (3 - Td or Tdap) 04/28/2028 04/28/2018, 01/13/2012 HIB Vaccines Aged Out No longer eligi ble based on patient's age to complete this topic HPV Vaccines Aged Out No longer eligi ble based on patient's age to complete this topic Hepatitis A Vaccines Aged Out No long er eligible based on patient's age to complete this topic Hepatitis B Vaccines Aged Out No long er eligible based on patient's age to complete this topic IPV Vaccines Aged Out No longer eligi ble based on patient's age to complete this topic MMR Vaccines Aged Out No longer eligi ble based on patient's age to complete this topic Meningococcal ACWY Vaccine Aged Out N o longer eligible based on patient's age to complete this topic Meningococcal B Vacine Aged Out No lo nger eligible based on patient's age to complete this topic RSV Immunization Patients Under 20 months Aged Out No longer eligible b ased on patient's age to complete this topic Varicella Vaccines Aged Out No longer eligible based on patient's age to complete this topic Medical Devices Implanted Type Area Textile Science Technician Device Identifier Shelf Expiration Date Model / Serial / Lot Knee Pat Trthln Mtl Bck 36x10 Stry-Howm [id number] Implanted:Qty: 1 on 03/02/2022 by Mohit Vega MD Right: Knee [employer] [id number] 11/29/2026 5556-L-360 / / [id number] Knee Bsplt Triathlon Ti Sz 5 Stry-Howm [id number] Implanted:Qty: 1 on 03/02/2022 by Mohit Vega MD Right: Knee [employer] [id number] 12/30/2026 5536-B-500 / / [id number] Knee Tib Insrt Ps X3 5x11mm Stry-Howm [id number] Implanted:Qty: 1 on 03/02/2022 by Mohit Vega MD Right: Knee [employer] [id number] 09/29/2026 5531-G-511 / / [id number] Knee [facility]t [facility] [id number] Implanted:Qty: 1 on 03/02/2022 by Mohit Vega MD Right: Knee [employer] [id number] 12/30/2026 5517-F-402 / / [id number] Care Teams Bean Roaster Relationship Specialty Start Date End Date Julianne Tirado MD PCP - General Internal Medicine 06/14/18
--- OUTSIDE RECORDS SUMMARY | 2024-11-13 17:30 | XMS_ITS | Clinical Summary ---
Author Organization [address] [address] Phone Care Team Providers Care Coin Collector Name Role Phone Unavailable Primary Care Provider Unavailabl e Social History Tobacco Use Types Packs/Day Years Used Date Smoking Tobacco: Never Assessed Comments Unknown Sex and Gender Information Value Date Recorded Sex Assigned at Not on file Legal Sex Female 3:47 PM EDT Gender Identity Not on file Sexual Orientation Not on file Plan of Treatment Health Maintenance Due Date Last Done Comments HIV screening 1970 Hepatitis C screening 1975 Breast cancer screening 1997 Lipid disorder screening 1997 Colon cancer screening, Colonoscopy 2002 Diabetes screening 2002 Shingles vaccine (Shingrix) (2 of 2 - Shingrix (RZV) 2 Dose Standard Series) 12/01/2020 10/03/2020 Osteoporosis screening (bone density) 2022 Pneumococcal Vaccine (50+ years) (1 of 1 - PCV) 2022 Influenza vaccine 04/12/2024 08/27/2022, 09/21/2021 Covid-19 vaccine series ( season) 2024 09/01/2021, 11/20/2020, 10/30/2020 Tetanus adult (Td q 10,TDAP once) 04/28/2028 04/28/2018, 01/13/2012, 09/26/2003 RSV Discussion (1 - 1-dose 75+ series) 2032 Cervical cancer screening Discontinued Meningococcal Vaccine Aged Out No shon anayeli eligible based on patient's age to complete this topic Insurance MEDICARE [facility] MEDICARE [facility] MEDICARE [facility]
== END 2024-11-13 14:32 | disposition home or self-care (01) ==
PROVIDERS: PCP Internal Medicine; Visit Provider Internal Medicine
DX: J01.01 Acute recurrent maxillary sinusitis (principal); R06.09 Other forms of dyspnea

== ENCOUNTER → 2024-11-13 13:52 | Outpatient (BNVA) | payer MEDICARE, SELFPAY | PROVIDERS: PCP Internal Medicine; Visit Provider Internal Medicine | DX: J01.01 Acute recurrent maxillary sinusitis (principal); R06.09 Other forms of dyspnea | CPT/HCPCS: 96127; 99212 ==

== ENCOUNTER 2024-11-13 14:36 | Outpatient (REF) | payer MEDICARE, SELFPAY ==
[2024-11-13 18:23] LABS: MANUAL DIFF FLAG NO
--- OUTSIDE RECORDS SUMMARY | 2024-11-13 18:28 | XMS_ITS | Clinical Summary ---
Author Organization [facility] it Address [address] [place] [address] Care Team Providers Care Burial Vault Maker Name Role Phone Julianne Tirado MD Primary Care Provider [phone] Immunizations Name Administration Dates Next Due Pfizer SARS-CoV-2 COVID-19, mRNA, LNP-S, preservative free 11/20/2020,10/30/2020 Surgical History Surgery Date Site/Laterality Comments TONSILLECTOMY ADENOIDECTOMY, BILATERAL MYRINGOTOMY AND TUBES 5 yrs PROCEDURE: ID TONSILLECTOMY & ADENOIDECTOMY <AGE 14 OTHER SURGICAL HISTORY 2003 PROCEDURE: ID ARTHRODESIS ANTERIOR SPINAL DFRM 2-3 VRT SGM; COMMENT: lumbar spine CYST REMOVAL 06/14 PROCEDURE: ID EXCISION PILONIDAL CYST/SINUS SIMPLE KNEE ARTHROSCOPY W/ MENISCAL REPAIR latest 15 yrs ago PROCEDURE: ID ARTHROSCOPY KNEE W/MENISCUS RPR MEDIAL/LATERAL; COMMENT: x's 3 OTHER SURGICAL HISTORY PROCEDURE: ID OPEN TX CARPAL BONE FRACTURE OTH/THN SCAPHOID [...] KNEE ARTHROPLASTY;COMMENT:Proc edure: REPLACEMENT TOTAL KNEE; Surgeon: Mohit Vega MD; Location: [facility] ([facility]); Service: Orthopedics; [...] obesity with BMI of 4 0.0-44.9, adult ([facility]/HCC) DX:Morbid obesity with BMI o f 40.0-44.9, adult ([facility]) Hyperlipidemia DX:Hyperlipidemi a Failed back syndrome DX:Failed [...] this topic Medical Devices Implanted Type Area Computer Information Systems Professor Device Identifier Shelf Expiration Date Model / Serial / Lot Knee Pat Trthln Mtl Bck 36x10 Stry-Howm [id number] Implanted:Qty: 1 on 03/02/2022 by Mohit Vega MD Right: Knee [employer] [id number] 11/29/2026 5556-L-360 / / [id number] Knee Bsplt Triathlon Ti Sz 5 Stry-Howm [id number] Implanted:Qty: 1 on 03/02/2022 by Mohit Vega MD Right: Knee [employer] [id number] 12/30/2026 5536-B-500 / / [id number] Knee Tib Insrt Ps X3 5x11mm Stry-Howm [id number] Implanted:Qty: 1 on 03/02/2022 by Mohit Vega MD Right: Knee [employer] [id number] 09/29/2026 5531-G-511 / / [id number] Knee [facility] [id number] Implanted:Qty: 1 on 03/02/2022 by Mohit Vega MD Right: Knee [employer] [id number] 12/30/2026 5517-F-402 / / [id number] Care Teams Burial Vault Maker Relationship Specialty Start Date End Date Julianne Tirado MD PCP - General Internal Medicine 06/14/18
--- OUTSIDE RECORDS SUMMARY | 2024-11-13 18:28 | XMS_ITS | Clinical Summary ---
Author Organization [facility] Address [address] [place] [address] Care Team Providers Care Vascular Sonographer Name Role Phone Julianne Tirado MD Primary Care Provider [phone] Allergies Active Allergy Reactions Criticality Noted Date [...] Immunizations Name Administration Dates Next Due Covid-19 ([employer]) Dilution Required 09/01/2021 Social History Tobacco Use [...] this topic Medical Devices Implanted Type Area Self Defense Instructor Device Identifier Shelf Expiration Date Model / Serial / Lot Cement Palacos R Bone 40gm - [id number] - [id number] Implanted:Qty: 1 on 06/20/2018 by Mohit Vega MD at [facility] Left: Knee [employer] 12/10/2021 [id number] / / [id number] Stem Diana Ii Long 100mm 14mm Titanium Tibial Knee - [id number] - [id number] Implanted:Qty: 1 on 06/20/2018 by Mohit Vega MD at [facility] Left: Knee [employer] 04/29/2028 [id number] / / [id number] Baseplate Diana Ii 5 Base Nonporous Metal Tibial Right - [id number] - [id number] Implanted:Qty: 1 on 06/20/2018 by Mohit Vega MD at [facility] and [facility] Left: Knee [employer] 03/06/2028 [id number] / / [id number] Patella Diana Ii 7.5mm Resur 35mm - [id number] - [id number] Implanted:Qty: 1 on 06/20/2018 by Mohit Vega MD at [facility] Left: Knee [employer] 01/08/2028 [id number] / / [id number] Baseplate Diana Ii 5 Cemented Titanium Nonporous Tibial - 827803 - [id number] Implanted:Qty: 1 on 06/20/2018 by Mohit Vega MD at [facility] and [facility] Left: Knee [employer] 02/20/2028 [id number] / / [id number] Component Legion Diana Ii 5 Posterior Stabilized Oxinium - [id number] - [id number] Implanted:Qty: 1 on 06/20/2018 by Mohit Vega MD at [facility] and [facility] Left: Knee [employer] 03/11/2028 [id number] / / [id number] Insert Diana Ii 5-6 11mm Constrained Uhmwpe Artic Knee - [id number] - [id number] Implanted:Qty: 1 on 06/20/2018 by Mohit Vega MD at [facility] and [facility] Left: Knee [employer] 03/06/2028 [id number] / / [id number] Knee Tib Insrt Ps X3 5x11mm Stry-Howm [id number] - [id number] Implanted:Qty: 1 on 03/02/2022 by Mohit Vega MD at [facility] Right: Knee [employer] [id number] 09/29/2026 5531-G-511 / / [id number] Knee Fem Bsplt W Pa Stry-Howm [id number] - [id number] Implanted:Qty: 1 on 03/02/2022 by Mohit Vega MD at [facility] and [facility] Right: Knee [employer] [id number] 12/30/2026 5517-F-402 / / [id number] Knee Pat Trthln Mtl Bck 36x10 Stry-Howm [id number] 16 - [id number] Implanted:Qty: 1 on 03/02/2022 by Mohit Vega MD at [facility] and [facility] Right: Knee [employer] [id number] 11/29/2026 5556-L-360 / / [id number] Knee Bsplt Triathlon Ti Sz 5 Stry-Howm [id number] 15 - [id number] Implanted:Qty: 1 on 03/02/2022 by Mohit Vega MD at [facility] and [facility] Right: Knee [employer] [id number] 12/30/2026 5536-B-500 / / [id number] Advance Directives For more information, please contact: [phone] Latest Code Status on File Code Status [...] in the following way: discussion with healthcare personal banking representative . Full Code 06/20/2018 5:15 AM 06/20/2018 7:28 AM Care Teams Vascular Sonographer Relationship Specialty Start Date End Date Julianne Tirado MD PCP - General Internal Medicine 06/14/18
--- OUTSIDE RECORDS SUMMARY | 2024-11-13 18:28 | XMS_ITS | Clinical Summary ---
Author Organization [address] [address] Phone Care Team Providers Care Nuclear Weapons Custodian Name Role Phone Unavailable Primary Care Provider [...] age to complete this topic Insurance MEDICARE [facility] MEDICARE [facility] MEDICARE [facility]
[2024-11-13 18:57] LABS: Basophils Absolute Auto 0.1 X10*3/uL (0.0-0.2); Basophils Percent Auto 0.7 % (0-2); Eosinophils Absolute Auto 0.2 X10*3/uL (0.0-0.4); Eosinophils Percent Auto 1.9 % (0-4); Hematocrit 42.4 % (37.0-47.0); Hemoglobin 13.8 g/dl (12.0-16.0); Imm Gran Abs Auto 0.03 X10*3/uL (0.00-0.03); Imm Gran Pct Auto 0.3 % (0.0-0.4); Lymphocytes Absolute Auto 3.3 X10*3/uL (1.2-4.9); Lymphocytes Percent Auto 29.5 % (20-40); Mean Corpuscular HGB Conc 32.5 g/dl (31.0-35.0); Mean Corpuscular Hemoglobin 27.8 pg (27.0-33.0); Mean Corpuscular Volume 85.3 fL (80.0-98.0); Mean Platelet Volume 10.8 fL (9.4-12.3); Monocytes Absolute Auto 0.9 X10*3/uL (0.1-1.2); Monocytes Percent Auto 7.8 % (2-11); Neutrophils Absolute Auto 6.6 x10*3/uL (2.0-8.3); Neutrophils Percent Auto 59.8 % (45-73); Platelet Count 307 X10*3/uL (160-400); Red Blood Count 4.97 X10*6/uL (4.20-5.50); Red Cell Distribution Width 13.6 % (11.0-16.0); White Blood Count 11.1 X10*3/uL (4.8-10.8)
[2024-11-13 19:01] LABS: Alanine Aminotransferase 23 U/L (0-31); Albumin Level 4.4 g/dL (3.5-5.0); Alkaline Phosphatase 136 U/L (39-117); Anion Gap 13 (12-20); Aspartate Amino Transferase 22 U/L (5-31); Bilirubin Total 0.5 mg/dL (0.0-1.0); Blood Urea Nitrogen 10 mg/dL (9-16); Calcium 9.6 mg/dL (8.4-10.2); Carbon Dioxide 29 mmol/L (22-29); Chloride 102 mmol/L (96-108); Cholesterol 154 mg/dL (<200); Estimated Glomerular Filt Rate 59; Glucose Random 106 mg/dL (60-115); HDL Cholesterol 67 mg/dL (>40); Iron 50 mcg/dL (30-160); LDL Cholesterol Calculated 70 mg/dL (<100); Percent Iron Saturation 17 % (15-50); Potassium 3.6 mmol/L (3.3-5.1); Sodium 140 mmol/L (135-145); TSH reflex Free T4 0.97 uIU/mL (0.32-4.0); Total Iron Binding Capacity 287 mcg/dL (228-428); Total Protein 8.2 g/dL (6.5-8.0); Triglycerides 87 mg/dL (<150); Unsaturated Iron Binding 237 ug/dL
[2024-11-13 19:14] LABS: Folate 8.6 ng/mL (> or = 4.0); Vitamin B12 288 pg/mL (200-900)
== END 2024-11-13 14:37 | disposition home or self-care (01) ==
LOC: HO.WFDLDS 14:36
PROVIDERS: Visit Provider Internal Medicine
DX: J01.01 Acute recurrent maxillary sinusitis (principal); R06.09 Other forms of dyspnea; I10 Essential (primary) hypertension; R53.83 Other fatigue
CPT/HCPCS: 36415; 80053; 80061; 82607; 82746; 83540; 84443; 85025; 96127; 99212